=== PATIENT | female | born 1980 | race Caucasian/White ===

== ENCOUNTER → 2024-06-17 | Outpatient (CLI) | payer OTHER ==
--- NOTE | 2024-06-23 18:18 | MM ---
Reason for Exam: Screening (asymptomatic). Patient History: Menarche at age 9. First Full-Term at age 18. Left ovary removed at age 29. Right ovary removed at age 29. Hysterectomy at age 29. Postmenopausal. Risk Values: Chasity 5 year model risk: 0.8%. NCI Lifetime model risk: 9.3%. Prior Study Comparison: No prior studies available for comparison. Tissue Density: The breasts are heterogeneously dense, which may obscure small masses. Findings: Analyzed By CAD. Lateral posterior asymmetric density right cc view. This may represent superimposition shadow but further evaluation is recommended. Subareolar focal asymmetry left breast slightly inferiorly may also represent superimposition shadow but further evaluation is recommended. No suspicious microcalcification or other discrete abnormality is seen. Overall Assessment: Incomplete: need additional imaging evaluation, BI-RAD 0 Management: Special View Mammogram of both breasts. [facility] will attempt to contact patient to return for supplemental views and ultrasound if indicated. [facility], , 06/23/2024 6:15 PM. Electronically signed and approved by: Suhail Henson M.D. Radiologist
== END | disposition home or self-care (01) ==
LOC: RADMAMWWP 16:13
PROVIDERS: ATTEND Family Medicine
DX: Z12.31 Encounter for screening mammogram for malignant neoplasm of breast
CPT/HCPCS: 77067

== ENCOUNTER → 2024-07-02 | Outpatient (CLI) | payer OTHER ==
--- NOTE | 2024-07-02 13:49 | MM ---
Reason for Exam: Additional evaluation requested from abnormal screening. Last screening mammogram was performed less than 1 month ago. Patient History: Menarche at age 9. First Full-Term at age 18. Left ovary removed at age 29. Right ovary removed at age 29. Hysterectomy at age 29. Postmenopausal. Risk Values: Chasity 5 year model risk: 0.8%. NCI Lifetime model risk: 9.3%. Prior Study Comparison: 06/17/2024 Bilateral MG screening mammo w CAD, [facility]. Tissue Density: There are scattered areas of fibroglandular density. Findings: Analyzed By CAD. No suspicious finding in the right breast asymmetry resolves. Left breast in the posterior lateral aspects approximately 20 mm from the nipple measuring 8 mm is a mass. Overall Assessment: Incomplete: need additional imaging evaluation, BI-RAD 0 Management: Diagnostic Breast Ultrasound of the left breast. Results were given to the patient verbally at the time of exam. Patient should continue monthly self-breast exams. A clinical breast exam by your physician is recommended on an annual basis. This exam should not preclude additional follow-up of suspicious palpable abnormalities. Note on Chasity scores and lifetime risk: 1. A Chasity score greater than 3% is considered moderate risk. If this is the case, consider specialist referral to assess eligibility for a risk reducing agent. 2. If overall lifetime risk for the development of breast cancer is 20% or higher, the patient may qualify for future screening with alternating mammogram and breast MRI. [facility], , 07/02/2024 1:46 PM. Electronically signed and approved by: Armaan Cabrera DO
--- NOTE | 2024-07-02 14:08 | USB ---
Reason for Exam: Additional evaluation requested from abnormal screening. Patient History: Menarche at age 9. First Full-Term at age 18. Left ovary removed at age 29. Right ovary removed at age 29. Hysterectomy at age 29. Postmenopausal. Risk Values: Chasity 5 year model risk: 0.8%. NCI Lifetime model risk: 9.3%. Technique: Method: Targeted. Prior Study Comparison: 06/17/2024 Bilateral MG screening mammo w CAD, [facility]. Findings: The periareolar of the left breast, the lower section of the breast of the left breast and the retroareolar of the left breast were scanned. Technique utilized:US breast workup limited LT Image; Ultrasound imaging of: Area of concern, retroareolar region and axilla. No definitive correlate on ultrasound for mammography findings on today's exam. Short-term follow-up in 6 months recommended with mammogram. No evidence for organizing fluid collection or mass. Overall Assessment: Probably benign, BI-RAD 3 Management: Diagnostic Mammogram of the left breast in 6 months. A clinical breast exam by your physician is recommended on an annual basis and results should be correlated with mammographic findings. This exam should not preclude additional follow-up of suspicious palpable abnormalities. Results were given to the patient verbally at the time of exam. [facility], , 07/02/2024 2:05 PM. Electronically signed and approved by: Armaan Cabrera DO
== END ==
LOC: RADMAMWWP 13:15
PROVIDERS: ATTEND Family Medicine
CPT/HCPCS: 77062; 77066